=== PATIENT | male | born 1990 ===

== ENCOUNTER 2022-12-18 16:23 | Emergency (ER) | payer BC ==
[2022-12-18] MEDS ORDERED: LORazepam 2 MG/ML SDV ONE (16:39)
[2022-12-18] MEDS ORDERED: Sodium Chloride 0.9% 10 ML Syringe FLUSH PRN (16:46)
[2022-12-18] MEDS ORDERED: diphenhydrAMINE 50 MG/ML SDV IVPUSH ONE (16:46)
[2022-12-18] MEDS ORDERED: Sodium Chloride 0.9% 2.5 ML Syringe FLUSH PRN (16:46)
[2022-12-18] MEDS ORDERED: LORazepam 2 MG/ML SDV IVPUSH ONE ×2 (16:46)
[2022-12-18] MEDS ORDERED: Sodium Chloride 0.9% 1,000 ML IV ONE (16:48)
[2022-12-18] MEDS: Sodium Chloride 0.9% 1,000 ML IV ONE ×2 (16:51→16:57)
[2022-12-18 17:27] LABS: CARBON DIOXIDE,CO2 21.9 mmol/L (21.0-32.0); POTASSIUM,K 3.8 mmol/L (3.5-5.1)
== END 2022-12-18 19:13 | disposition home or self-care (01) ==
LOC: MW.ED 16:23
DX: F45.8 Other somatoform disorders (principal)
CPT/HCPCS: 36415; 80053; 83735; 84443; 85025; 93005; 96361; 96374; 96375; 99284; J1200; J2060; J3490; J7030; 93010